=== PATIENT | male | born 1980 | race Caucasian/White ===

== ENCOUNTER 2017-06-16 16:23 | Emergency (ER) | payer MEDICARE, MEDICAID ==
[2017-06-16 18:11] VITALS: BP 125/68
--- NOTE | 2017-06-17 08:24 | ED ---
Skin Complaint - HPI Summary HPI Summary: Patient c/o possible infection to the right index finger just distal to the PIP joint several days after an injury from a grinding tool. He denies any crush injury and is able to flex and extend at the joint without pain. There is a small raised erythematous area with a central open area which appears to be previously draining serous and exudative fluid. It appears to be infected. The patient denies fevers, sweats or chills. He is moving the joint without pain or difficulty. He has never injured the area before, denies hx of MRSA. He is allergic to amoxicillin with allergic reaction of hives. Discussed giving keflex at a <10% chance of cross-reactivity and patient agrees to take. He feels he may have taken this medication in the past with no reaction. He is strongly encouraged to return if he develops any symptoms or reactions. He is a smoker. Lives with . Takes no medications. 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 Hx Obtained From: Patient Onset/Duration: Started Days Ago Skin Exposure Onset/Duration: Days Ago Timing: Constant Onset Severity: Mild Current Severity: Mild Pain Intensity: 5 Pain Scale Used: 0-10 Numeric Skin Location: Hand Character: Swelling, Pain Aggravating Symptom(s): Nothing Alleviating Symptom(s): Nothing Associated Signs & Symptoms: Drainage Related History: Trauma - Additional Pertinent History Primary Care Physician: PHILIP - Allergy/Home Medications Allergies/Adverse Reactions: Allergies Allergy/AdvReac Type Severity Reaction Status Date / Time Amoxicillin Allergy Unknown Unknown Verified 06/01/16 08:15 Reaction Details Penicillins [PCN] Allergy Unknown Unknown Verified 06/01/16 08:15 Reaction Details PMH/Surg Hx/FS Hx/Imm Hx Previously Healthy: Yes Endocrine/Hematology History: Denies: Hx Anticoagulant Therapy, Hx Diabetes Cardiovascular History: Denies: Hx Congestive Heart Failure, Hx Hypertension, Hx Pacemaker/ICD, Other Cardiovascular Problems/Disorders Respiratory History: Reports: Hx Asthma - WILL BRING INHALER, Hx Sleep Apnea - NO CPAP History: Denies: Hx Renal Disease Sensory History: Denies: Hx Contacts or Glasses, Hx Hearing Aid Opthamlomology History: Denies: Hx Contacts or Glasses Neurological History: Reports: Other Neuro Impairments/Disorders - 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, HX ANGER ISSUES CONTROLED WITH MEDS, ADHD Psychiatric History: Reports: Hx Depression, Hx of Violent Episodes Against Others Denies: Hx Eating Disorder, Hx Panic Disorder - Surgical History Surgery Procedure, Year, and Place: right ankle 2012 Hx Anesthesia Reactions: No - Immunization History Date of Tetanus Vaccine: Unknown Date of Influenza Vaccine: None Hx Pertussis Vaccination: No Immunizations Up to Date: Unable to Obtain/Confirm Infectious Disease History: No Infectious Disease History: Denies: Traveled Outside the [place] in Last 30 Days - Family History Known Family History: Positive: Cardiac Disease - sister, Other - emphysema, arthritis (mother) - Social History Occupation: Employed Full-time Lives: With Family Alcohol Use: None Hx Substance Use: Yes Substance Use Type: Reports: Marijuana Substance Use Comment - Amount & Last Used: RARE MARIJUANA USE Hx Tobacco Use: Yes Smoking Status (MU): Heavy Every Day Tobacco Smoker Type: Cigarettes Amount Used/How Often: 1/2 PACK A DAY Have You Smoked in the Last Year: Yes Review of Systems Constitutional: Negative Eyes: Negative Cardiovascular: Negative Respiratory: Negative Gastrointestinal: Negative Positive: Other - abrasion to the rt index finger Neurological: Negative All Other Systems Reviewed And Are Negative: Yes Physical Exam Triage Information Reviewed: Yes Vital Signs On Initial Exam: Initial Vitals Temp Pulse Resp BP Pulse Ox 98.7 F 73 18 132/88 98 06/16/17 16:30 06/16/17 16:30 06/16/17 16:30 06/16/17 16:30 06/16/17 16:30 Vital Signs Reviewed: Yes Appearance: Positive: Well-Appearing, Well-Nourished Skin: Positive: Warm, Skin Color Reflects Adequate Perfusion Head/Face: Positive: Normal Head/Face Inspection Eyes: Positive: EOMI, Conjunctiva Clear Neck: Positive: Supple, No Lymphadenopathy Respiratory/Lung Sounds: Positive: Clear to Auscultation, Breath Sounds Present Cardiovascular: Positive: Normal, RRR, Pulses are Symmetrical in both Upper and Lower Extremities Musculoskeletal: Positive: Strength/ROM Intact, Pain @ - right PIP joint Neurological: Positive: Speech Normal Psychiatric: Positive: Normal Diagnostics - Vital Signs Vital Signs Temp Pulse Resp BP Pulse Ox 06/16/17 18:10 98 F 68 16 125/68 06/16/17 16:47 98.7 F 73 16 132/88 98 06/16/17 16:30 98.7 F 73 18 132/88 98 - Laboratory Lab Statement: Any lab studies that have been ordered have been reviewed, and results considered in the medical decision making process. Course/Dx - Course Course Of Treatment: There is a small raised erythematous area with a central open area which appears to be previously draining serous and exudative fluid. It appears to be infected. The patient denies fevers, sweats or chills. He is moving the joint without pain or difficulty. He is allergic to amoxicillin with allergic reaction of hives. Discussed giving keflex at a <10% chance of cross- reactivity and patient agrees to take. He feels he may have taken this medication in the past with no reaction. He is strongly encouraged to return if he develops any symptoms or reactions. Patient is given Keflex x 7 days for infected wound. Tylenol for discomfort. - Differential Diagnoses - Skin Complaint Differential Diagnoses: Abscess, Cellulitis, MRSA - Diagnoses Provider Diagnoses: Infected wound Discharge - Discharge Plan Condition: Stable Disposition: HOME Prescriptions: Cephalexin CAP* [Keflex CAP*] 500 mg PO QID #28 cap MDD 4 Patient Education Materials: Abscess (ED), Warm Compress or Soak (ED) Referrals: Nic Morgan MD [Primary Care Provider] - Additional Instructions: If you develop redness, streaks of red around the wound, swelling, abnormal drainage or you develop a fever - you need to come back to the ED right away.
== END 2017-06-16 18:10 | disposition home or self-care (01) ==
LOC: ED 16:23
DX: S61.200A Unspecified open wound of right index finger without damage to nail, initial encounter (principal); L08.9 Local infection of the skin and subcutaneous tissue, unspecified; X58.XXXA Exposure to other specified factors, initial encounter; Y93.9 Activity, unspecified; Y92.9 Unspecified place or not applicable; J45.909 Unspecified asthma, uncomplicated; F32.9 Major depressive disorder, single episode, unspecified; Z88.0 Allergy status to penicillin; F17.210 Nicotine dependence, cigarettes, uncomplicated
CPT/HCPCS: 99282

== ENCOUNTER 2017-12-26 22:56 | Emergency (ER) | payer MEDICARE, MEDICAID ==
[2017-12-26] MEDS ORDERED: Bacitracin OINTMENT* 0.5% 0.5 oz TUBE TOPICAL ONE (23:32)
--- NOTE | 2017-12-26 23:36 | ED ---
Burn - HPI Summary HPI Summary: 37-year-old male presents with melchor to his left hip of his left hand today. He states he was getting something out of the oven and he burnt his finger tops. He States He Placed Neosporin on the Area. He States the Area Is Beginning to Swell. There Are No Blisters. This Occurred 20 Minutes Prior to arrival. He Believes His Tetanus Is Up-To-Date. He Is Not Currently Employed. He Is Right-Handed. - History of Current Complaint Chief Complaint: EDBurnSmokeInh Stated Complaint: BURN ON LT HAND Time Seen by Provider: 12/26/17 23:19 Pain Intensity: 8 - Allergy/Home Medications Allergies/Adverse Reactions: Allergies Allergy/AdvReac Type Severity Reaction Status Date / Time MS Amoxicillin [Amoxicillin] Allergy Unknown Unknown Verified 06/01/16 08:15 Reaction Details MS Penicillins [PCN] Allergy Unknown Unknown Verified 06/01/16 08:15 Reaction Details PMH/Surg Hx/FS Hx/Imm Hx Endocrine/Hematology History: Denies: Hx Anticoagulant Therapy, Hx Diabetes Cardiovascular History: Denies: Hx Congestive Heart Failure, Hx Hypertension, Hx Pacemaker/ICD, Other Cardiovascular Problems/Disorders Respiratory History: Reports: Hx Asthma - WILL BRING INHALER, Hx Sleep Apnea - NO CPAP History: Denies: Hx Renal Disease Sensory History: Denies: Hx Contacts or Glasses, Hx Hearing Aid Opthamlomology History: Denies: Hx Contacts or Glasses Neurological History: Reports: Other Neuro Impairments/Disorders - 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, HX ANGER ISSUES CONTROLED WITH MEDS, ADHD Psychiatric History: Reports: Hx Depression, Hx of Violent Episodes Against Others Denies: Hx Eating Disorder, Hx Panic Disorder - Surgical History Surgery Procedure, Year, and Place: right ankle 2012 Hx Anesthesia Reactions: No - Immunization History Date of Tetanus Vaccine: Unknown Date of Influenza Vaccine: None Infectious Disease History: No Infectious Disease History: Denies: Traveled Outside the [place] in Last 30 Days - Family History Known Family History: Positive: Cardiac Disease - sister, Other - emphysema, arthritis (mother) - Social History Alcohol Use: None Hx Substance Use: Yes Substance Use Type: Reports: Marijuana Substance Use Comment - Amount & Last Used: RARE MARIJUANA USE Hx Tobacco Use: Yes Smoking Status (MU): Light Every Day Tobacco Smoker Type: Cigarettes Amount Used/How Often: 1/2 PACK A DAY Have You Smoked in the Last Year: Yes Review of Systems Negative: Fever Negative: Chest Pain Negative: Shortness Of Breath Positive: Other - burn on fingertips All Other Systems Reviewed And Are Negative: Yes Physical Exam Triage Information Reviewed: Yes Vital Signs On Initial Exam: Initial Vitals Temp Pulse Resp BP Pulse Ox 99.3 F 59 16 142/94 98 12/26/17 23:13 12/26/17 23:13 12/26/17 23:13 12/26/17 23:13 12/26/17 23:13 Vital Signs Reviewed: Yes Appearance: Positive: Well-Appearing Skin: Positive: Warm, Dry, Other - bronze coloring to tips of left palmar aspect of fingers, no blisters Head/Face: Positive: Normal Head/Face Inspection Eyes: Positive: Normal, Conjunctiva Clear Respiratory/Lung Sounds: Positive: Clear to Auscultation, Breath Sounds Present Cardiovascular: Positive: Normal, RRR Musculoskeletal: Positive: Strength/ROM Intact - fingers, Edema Left - fingertips, Other - not circumferential burn, capillary refill<2 secs, painful to touch Neurological: Positive: Normal Psychiatric: Positive: Normal Burn Calculation - [place] Formula for Fluid Resuscitation Weight: 165 lb 24 -Hour Fluid Replacement: 0.0 Diagnostics - Vital Signs Vital Signs Temp Pulse Resp BP Pulse Ox 12/26/17 23:13 99.3 F 59 16 142/94 98 - Laboratory Lab Statement: Any lab studies that have been ordered have been reviewed, and results considered in the medical decision making process. Burn Course/Dx - Course Course Of Treatment: 37-year-old male presents with melchor to his left hip of his left hand today. He states he was getting something out of the oven and he burnt his finger tops. He States He Placed Neosporin on the Area. He States the Area Is Beginning to Swell. There Are No Blisters. This Occurred 20 Minutes Prior to arrival. He Believes His Tetanus Is Up-To-Date. He Is Not Currently Employed. He Is Right-Handed. on exam has tips of left fingers swollen on palmar aspect with bronze coloring. no blister. not circumfertenial. has full ROM with pain. likely is superficial parital thickeness burn so explained likely will blister. will have follow up with primary. patient understand and agrees with plan. - Diagnoses Differential Diagnoses: Positive: Chemical Burn, Direct Contact Thermal Burn Provider Diagnosis: burn fingertips left hand Discharge - Discharge Plan Condition: Good Disposition: HOME Patient Education Materials: Second Degree Burn (ED) Referrals: Nic Morgan MD [Primary Care Provider] - Additional Instructions: Wash hand with soap and water Apply bactrician once a day blisters may develop do not pop them Follow up with primary within 5 days Return to ED if develop any new or worsening symptoms
[2017-12-26 23:55] VITALS: BP 153/84
== END 2017-12-26 23:55 | disposition home or self-care (01) ==
LOC: ED 22:56
DX: T23.032A Burn of unspecified degree of multiple left fingers (nail), not including thumb, initial encounter (principal); X19.XXXA Contact with other heat and hot substances, initial encounter; Y92.89 Other specified places as the place of occurrence of the external cause; F17.210 Nicotine dependence, cigarettes, uncomplicated
CPT/HCPCS: 99282; A9270-GY

== ENCOUNTER 2018-01-09 09:23 | Day surgery (SDC) | payer MEDICARE, MEDICAID ==
[~2018-01-09 09:23] MED LIST: Buffered Lidocaine 0.9% SYRIN* 5 ML/SYR SYRINGE INTRADERM ONE; DiMENhydriNATE IV* 50 MG/ML VIAL IV PUSH PRN; Famotidine IV* 10 MG/ML 2 ML (20 mg) IV ONE; Morphine INJ* 2 MG/ML 1 ML CARPUJECT IV PRN; Naloxone* 0.4 MG/ML 1 ML VIAL IV PRN; PROCHLORPERAZINE INJ 5 MG/ML 2 ML VIAL IV PRN; Scopolamine 1.5 mg* PATCH TRANSDERM PRN; fentaNYL* 50 MCG/ML 2 ML VIAL (100 MCG VIAL) IV PRN; oxyCODONE/Acetamin 5/325 MG* TAB PO PRN
[2018-01-09] MEDS ORDERED: Buffered Lidocaine 0.9% SYRIN* 5 ML/SYR SYRINGE ONE (09:28)
[2018-01-09] MEDS ORDERED: Famotidine IV* 10 MG/ML 2 ML (20 mg) ONE (09:28)
[2018-01-09] MEDS ORDERED: Atracurium* 10 MG/ML 10 ML VIAL ONE (09:53)
[2018-01-09] MEDS ORDERED: Midazolam* 1 MG/ML 5 ML VIAL (5 MG) ONE (09:53)
[2018-01-09] MEDS ORDERED: fentaNYL* 50 MCG/ML 2 ML VIAL (100 MCG VIAL) ONE (09:53)
[2018-01-09] MEDS ORDERED: Bupivacaine 0.25% SDV* 30 ML ONE (10:39)
[2018-01-09] MEDS ORDERED: Lidocaine 2% EPI 1:200000 MPF* 20 ML VIAL ONE (11:26)
[2018-01-09] MEDS ORDERED: Propofol* 10 MG/ML 20 ML BTL IV PUSH ONE (11:33)
[2018-01-09] MEDS ORDERED: Ondansetron INJ* 2 MG/ML VIAL ONE (11:33)
[2018-01-09] MEDS ORDERED: Dexamethasone IV* 4 MG/ML 1 ML (4 MG) ONE (11:33)
[2018-01-09] MEDS ORDERED: Glycopyrrolate IV* 0.2 MG/ML 1 ML VIAL ONE (11:33)
[2018-01-09] MEDS ORDERED: Ketorolac INJ* 30 MG/ML 1 ML VIAL ONE (11:33)
[2018-01-09] MEDS ORDERED: Lidocaine 2% JELLY* 6 ML JELLY TOPICAL ONE (11:46)
--- NOTE | 2018-01-09 12:00 | OP ---
Operative Report - Blank - Operative Report Date of Operation: 01/09/18 Note: Preop Dx: Anal bleeding and internal hemorrhoids Postop Dx: same Procedure: Anal-rectal exam done under general anesthesia with internal hemorrhoid banding Surgeon: Dr. Morris Assist: GRACIELA Billingsley Anesthesia: GET Fluids: 1100 ml LR EBL: minimal Drains: None Specimen: none Findings: see dictated operative note.
[2018-01-09 12:32] VITALS: BP 130/91
--- NOTE | 2018-01-10 17:19 | OP ---
CC: [facility]; Dr. Nic Morgan * DATE OF OPERATION: 01/09/[address] - [facility] DATE OF : 76 SURGEON: Cristian Morris MD. ANESTHESIOLOGIST: Dr. Busby. ANESTHESIA: General with local. PRE-OP DIAGNOSES: Rectal bleeding and internal hemorrhoids. POST-OP DIAGNOSES: Rectal bleeding and internal hemorrhoids. OPERATIVE PROCEDURE: Anorectal exam under anesthesia with banding of internal hemorrhoids. ESTIMATED BLOOD LOSS: Minimal. SPECIMENS: None. WOUND CLASSIFICATION: Not applicable. FINDINGS: The patient had several large posterior internal hemorrhoids, which were thin walled and bled easily on manipulation. Three separate bands were placed on these hemorrhoids. One external hemorrhoid was identified and the remainder of the anorectal exam was unremarkable. There was no evidence of fissures, fistulas, abscess or other acute abnormality. BRIEF HISTORY: Mr. Aydin Gusman is a 37-year-old gentleman with a longstanding history of internal hemorrhoids. He has had bands placed almost 10 years ago and has intermittent bleeding after bowel movements. He has noticed some prolapse at times. He was seen in the office last week and an adequate examination was not able to be performed due to his inability to tolerate anoscopy and he is now being taken to the operating room for exam under anesthesia, with possible hemorrhoid banding as well as possible internal hemorrhoidectomy. The procedure was discussed with the patient and the risks of, but not limited to, bleeding, infection, sepsis, discomfort postoperatively, urinary retention, possibility of staged procedure, i.e., serial bandings were all explained. In addition, the risks of anesthesia were all explained. DESCRIPTION OF PROCEDURE: Written informed consent was obtained and the patient was taken to the operating room, placed in the prone flex-knife position. General anesthesia was administered. Sequential compression devices and warming blanket were applied. The perianal area was prepped and draped in the usual sterile fashion. Time-out verification was completed. 2% lidocaine with epinephrine as well as Marcaine was infiltrated to perform the standard perianal block. On exam, there was noted to be an external hemorrhoid at about the 2 o'clock position, which was somewhat firm, but overlying normal skin, and no evidence of inflammation or abscess. There was no evidence of external openings, anal fissure or abscess noted. Digital rectal exam showed no discrete mass and there was no blood. At anoscopy, it appeared that posteriorly there were three separate pedicles of internal hemorrhoids, which were quite thin walled and congested and bled easily on manipulation. Anteriorly, I noted no significant hemorrhoidal disease. The distal rectal mucosa appeared to be unremarkable. With this finding, three separate bands were placed on the three separate posterior component hemorrhoid pedicles and he tolerated this portion well and hemostasis was assured. Lidocaine jelly was inserted into the anal canal. Gauze was placed between the buttock cheeks. The patient tolerated the procedure well and was taken to the recovery room in stable condition. [id number]/[facility] #: [id number] MTDD
[2018-01-12] MEDS ORDERED: Scopolamine PATCH Remove* 1 NOTE MISC PATCH OFF ONE (05:57)
== END 2018-01-09 13:00 | disposition home or self-care (01) ==
LOC: OR 09:23
PROVIDERS: ATTEND Surgery
DX: K64.8 Other hemorrhoids (principal); K62.5 Hemorrhage of anus and rectum; E78.00 Pure hypercholesterolemia, unspecified; F41.9 Anxiety disorder, unspecified; F32.9 Major depressive disorder, single episode, unspecified; F17.210 Nicotine dependence, cigarettes, uncomplicated; Z88.0 Allergy status to penicillin
CPT/HCPCS: J1100; J1885; J2250; J2405; J2704; J3010